=== PATIENT | male | born 1935 | race Caucasian/White ===

== ENCOUNTER 2016-08-16 19:13 | Emergency (ER) | payer MEDICARE, OTHER ==
[~2016-08-16] VITALS: Ht 190.5 cm; Wt 122.0 kg
[~2016-08-16 19:13] MED LIST: ACET325T9 PO; CARB1TAB2 PO; CHOL100013 PO; CHOL10003 PO; DEXT237L PO; DIVA125C PO; DOCU50CA9 PO; DONE10TA7 PO; FINA5TAB4 PO; GUAI5SYR PO; HYDR-971 PO; LEVO50TA5 PO; LORA0.5T96 PO; LOSA25TA4 PO; MAG355OR17 PO; MAGN400O4 PO; MELA3TAB12 PO; METH29OI TP; MOXI3DRO2 OD; MULT1TAB52 PO; NEPA1.7D OD; OLAN5TAB5 PO; PARO20TA3 PO; PRED5DRO6 OD; PROP15DR OU; QUET25TA5 PO; TAMS0.4C2 PO; TIMO5DRO5 OS
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
[2016-08-16 19:52] LABS: BASO % 1 % (0-3); EOS # 0.1 x10^3/uL (0.0-0.7); EOS % 2 % (0-3); HEMATOCRIT 44.7 % (39.0-53.0); HEMOGLOBIN 14.9 g/dL (13.0-17.5); LYMPH # 1.4 x10^3/uL (1.0-4.8); LYMPH % 20 % (24-48); MEAN CORPUSCULAR HEMOGLOBIN 32 pg (25-35); MEAN CORPUSCULAR HGB CONC 33 g/dL (31-37); MEAN CORPUSCULAR VOLUME 95 fL (79-100); MONO # 0.6 x10^3/uL (0.0-1.1); MONO % 9 % (0-9); NEUT # 4.7 x10^3uL (1.8-7.7); NEUT % 68 % (31-73); PLATELET COUNT 178 x10^3/uL (140-400); RED BLOOD COUNT 4.72 x10^6/uL (4.30-5.70); RED CELL DISTRIBUTION WIDTH 13.8 % (11.5-14.5)
[2016-08-16 20:00] LABS: ALBUMIN 3.6 g/dL (3.4-5.0); ALBUMIN/GLOBULIN RATIO 1.1 (1.0-1.7); CALCIUM 8.4 mg/dL (8.5-10.1); CREATININE 2.2 mg/dL (0.7-1.3); GFR 29.1; POTASSIUM 3.9 mmol/L (3.5-5.1); TOTAL BILIRUBIN 0.4 mg/dL (0.2-1.0); TOTAL PROTEIN 6.9 g/dL (6.4-8.2)
[2016-08-16 20:23] VITALS: BP 148/77
--- NOTE | 2016-08-18 10:46 | EKG ---
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
== END 2016-08-16 20:23 | disposition home or self-care (01) ==
LOC: ER 19:19
DX: F39 Unspecified mood [affective] disorder (principal); G31.83 Neurocognitive disorder with Lewy bodies; F32.9 Major depressive disorder, single episode, unspecified; I10 Essential (primary) hypertension; N40.0 Benign prostatic hyperplasia without lower urinary tract symptoms; H40.9 Unspecified glaucoma; G20 Parkinson's disease; N28.9 Disorder of kidney and ureter, unspecified; F29 Unspecified psychosis not due to a substance or known physiological condition; E55.9 Vitamin D deficiency, unspecified; R48.9 Unspecified symbolic dysfunctions; Z88.8 Allergy status to other drugs, medicaments and biological substances
CPT/HCPCS: 36415; 80053; 83690; 84443; 85027; 93005; 99285-25